=== PATIENT | male | born 1970 | race African-American/Black ===

== ENCOUNTER 2018-02-25 18:15 | Emergency (ER) | payer BC ==
[~2018-02-25] VITALS: Ht 175.3 cm; Wt 79.0 kg
[~2018-02-25 18:15] MED LIST: FLEXERIL10 MG PO; NAPROSYN500 MG PO; ULTRAM50 MG PO
[2018-02-25 20:45] VITALS: BP 111/74
== END 2018-02-25 20:45 | disposition home or self-care (01) ==
LOC: EME 18:15
PROVIDERS: Physician Assistant Medical
DX: B34.9 Viral infection, unspecified (principal)
CPT/HCPCS: 71046; 87502; 99281; 99284

== ENCOUNTER → 2018-04-12 | Outpatient (CLI) | payer BC ==
[~2018-04-12] VITALS: Ht 172.7 cm; Wt 78.5 kg
[~2018-04-12] MED LIST changes: +CONSTULOSE10 GM/15 M PO; +VENTOLIN HFA18 GM IH
== END | disposition home or self-care (01) ==
LOC: AMB 13:30
PROC: 0DBL8ZX Excision of Transverse Colon, Via Natural or Artificial Opening Endoscopic, Diagnostic (ICD-10-PCS; principal; 2018-04-12)
DX: Z12.11 Encounter for screening for malignant neoplasm of colon (principal); Z80.0 Family history of malignant neoplasm of digestive organs; D12.3 Benign neoplasm of transverse colon; K59.00 Constipation, unspecified; J45.909 Unspecified asthma, uncomplicated
CPT/HCPCS: 88305; J2250

== ENCOUNTER 2018-06-01 15:59 | Emergency (ER) | payer OTHER, BC ==
[~2018-06-01] VITALS: Ht 172.7 cm; Wt 75.0 kg
[2018-06-01 16:59] LABS: HEMATOCRIT 41.5 % (38.0-50.0); HEMOGLOBIN 13.4 G/DL (12.5-16.6); MCH 26.6 PG (29.0-34.0); MCHC 32.3 G/DL (30.0-36.0); MCV 82.3 FL (86-99); PLATELET COUNT 229 K/uL (156-360); RBC DIS.WIDTH-CV 14.1 % (11.8-14.6); RBC DIS.WIDTH-SD 41.5 % (39-53); RED BLOOD COUNT 5.04 M/uL (4.00-5.50); WHITE BLOOD COUNT 4.6 K/uL (4.1-10.2)
[2018-06-01 17:08] LABS: ALBUMIN 4.2 g/dL (3.2-4.8)
[2018-06-01 17:09] LABS: CHLORIDE 106 mEq/L (99-109); POTASSIUM 3.7 mEq/L (3.7-5.4); SODIUM 141 mEq/L (136-147)
[2018-06-01 17:11] LABS: GLUCOSE 95 mg/dL (70-99); TOTAL PROTEIN 7.1 g/dL (6.4-8.3)
[2018-06-01 17:13] LABS: TOTAL BILIRUBIN 0.4 mg/dL (0.0-1.0)
[2018-06-01 17:14] LABS: ALKALINE PHOSPHATASE 57 IU/L (3-129)
[2018-06-01 17:15] LABS: CREATININE 0.9 mg/dL (0.6-1.3); GFR ESTIMATE (CALCULATED) > 59 mL/min/ (58.99-99999)
[2018-06-01 17:16] LABS: AST (GOT) 24 IU/L (2-34); UREA NITROGEN (BUN) 7 mg/dL (9-23)
[2018-06-01 17:18] LABS: ALT (GPT) 45 IU/L (3-49)
[2018-06-01] MEDS ORDERED: FLEXERIL10 MG PO (19:41)
[2018-06-01 20:24] VITALS: BP 134/84
== END 2018-06-01 20:25 | disposition home or self-care (01) ==
LOC: EME 15:59
PROVIDERS: Emergency Medicine
DX: M54.9 Dorsalgia, unspecified (principal); M54.2 Cervicalgia; V49.40XA Driver injured in collision with unspecified motor vehicles in traffic accident, initial encounter; Y92.410 Unspecified street and highway as the place of occurrence of the external cause; J45.909 Unspecified asthma, uncomplicated; G43.909 Migraine, unspecified, not intractable, without status migrainosus; J30.2 Other seasonal allergic rhinitis
CPT/HCPCS: 70450; 71260; 72125; 72129; 72132; 74177; 80053; 85027; 86850; 86900; 86901; 99281; 99285; J2270; J2405